=== PATIENT | male | born 1965 | race Caucasian/White ===

== ENCOUNTER 2016-07-04 07:15 | Emergency (ER) | payer OTHER ==
[~2016-07-04] VITALS: Ht 175.3 cm; Wt 95.3 kg
--- NOTE | 2016-07-04 07:15 | NUR ---
BIBA TO ER BED 3
--- NOTE | 2016-07-04 07:20 | NUR ---
51/M BIBA FROM HOME TO ED C/O SOB X 2 DAYS. HX DIABETES, RENAL DS, HTN AND R BTKA. PT HAS SHUNT TO [employer] PL[employer] LAST FRIDAY. AAOX4. SKIN WARM/DRY/PALE. UPPER LUNG SOUNDS CLR, LL SOUNDS DIMINISHED. PT DENIES PAIN/N/V/FEVER. BG 244 MG/DL. 20G IV TO RAC. BLOOD DRAWN, LAB NOTIFIED. ER MADE AWARE.
--- NOTE | 2016-07-04 07:22 | NUR ---
Patient being evaluated by physician at bedside.
[2016-07-04 07:23] VITALS: BP 162/83
--- NOTE | 2016-07-04 07:28 | NUR ---
EKG AT BEDSIDE.
[2016-07-04] MEDS ORDERED: NITROGLYCERIN 2% 1 GM PKT TP ONE (07:30)
[2016-07-04] MEDS ORDERED: ASPIRIN 81 MG TAB.CHEW PO ONE (07:30)
--- NOTE | 2016-07-04 07:30 | NUR ---
EKG SHOWS ST ELEVATED. DR. DUMONT AWARE, WANTS TO AWAIT CARDIAC MARKERS. CARDIAC STEMI PROTOCOL IN PLACE.
--- NOTE | 2016-07-04 07:38 | NUR ---
XRAY AT BEDSIDE.
[2016-07-04] MEDS ORDERED: PROMETH/CODEINE 6.25-10MG/5ML 5 ML UDC PO ONE (07:40)
[2016-07-04 07:41] LABS: BASOPHILS # (AUTO) 0.1 K/uL (0.00-0.22); BASOPHILS % (AUTO) 0.9 % (0.0-2.0); EOSINOPHILS # (AUTO) 0.3 K/uL (0-0.4); EOSINOPHILS % (AUTO) 2.5 % (0.0-4.0); HEMATOCRIT 33.7 % (36-52); HEMOGLOBIN 11.3 g/dL (12.0-18.0); LYMPHOCYTES # (AUTO) 1.7 K/uL (2.0-11.5); LYMPHOCYTES % (AUTO) 16.9 % (20.5-51.1); MEAN CORPUSCULAR HEMOGLOBIN 30 pg (27-31); MEAN CORPUSCULAR HGB CONC 34 g/dL (33-37); MEAN CORPUSCULAR VOLUME 89 fL (80-94); MONOCYTES # (AUTO) 0.6 K/uL (0.8-1.0); MONOCYTES % (AUTO) 6.2 % (1.7-9.3); NEUTROPHILS # (AUTO) 7.6 K/uL (1.8-7.7); NEUTROPHILS % (AUTO) 73.5 % (42.2-75.2); PLATELET COUNT (AUTO) 192 K/uL (140-450); RED BLOOD CELL COUNT(AUTO) 3.78 MIL/uL (4.20-6.10); RED CELL DISTRIBUTION WIDTH 12.8 % (11.6-13.7); WHITE BLOOD COUNT (AUTO) 10.3 K/uL (4.8-10.8)
[2016-07-04] MEDS ORDERED: LEVEMIR SUBQ (07:43)
[2016-07-04] MEDS ORDERED: PIOG45TA PO (07:43)
[2016-07-04] MEDS ORDERED: HYDR-1098 PO (07:43)
[2016-07-04] MEDS ORDERED: CHLO25TA33 PO (07:43)
[2016-07-04] MEDS ORDERED: LIP80 PO (07:43)
[2016-07-04] MEDS ORDERED: ALLO100T21 PO (07:43)
[2016-07-04] MEDS ORDERED: FURO-570 PO (07:43)
[2016-07-04] MEDS ORDERED: CARV6.25 PO (07:43)
[2016-07-04] MEDS ORDERED: CLON0.1T42 PO (07:43)
[2016-07-04] MEDS ORDERED: HYDR-4446 PO (07:43)
[2016-07-04] MEDS ORDERED: METO100T22 PO (07:43)
[2016-07-04] MEDS ORDERED: AMLO10TA PO (07:43)
[2016-07-04] MEDS ORDERED: NITR0.4T2 SL (07:43)
[2016-07-04] MEDS ORDERED: HUM SUBQ (07:43)
[2016-07-04] MEDS ORDERED: [UNRECOGNIZED DRUG - CODE] PO (07:43)
[2016-07-04] MEDS ORDERED: ASPI81CT89 PO (07:43)
--- NOTE | 2016-07-04 07:50 | NUR ---
TO BED SIDE.
[2016-07-04 08:04] LABS: INR 1.1 (0.8-1.2); PROTHROMBIN TIME 10.2 secs (10.8-13.4)
[2016-07-04] MEDS ORDERED: FUROSEMIDE 20 MG/2 ML VIAL IVP ONE (08:15)
[2016-07-04] MEDS ORDERED: AZITHROMYCIN 1,000 MG in DEXTROSE 5% 500 ML IV ONE (08:15)
[2016-07-04] MEDS ORDERED: cefTRIAXone 1,000 MG VIAL ONE (08:27)
--- NOTE | 2016-07-04 08:43 | NUR ---
RECEIVED CRITICAL FROM LAB. TROPONIN 12.. DR. DUMONT MADE AWARE. STEMI ACTIVATION IN PLACE.
[2016-07-04] MEDS ORDERED: AZITHROMYCIN 500 MG INJ VIAL IV ONE (08:46)
--- NOTE | 2016-07-04 08:50 | NUR ---
DR. DUMONT AT BEDSIDE SPEAKING WITH PT AND FAMILY. CONSENTS SIGNED. EMS ETA 8MINS.
[2016-07-04 09:03] LABS: ANION GAP 15.5 (8-16); CALCIUM 8.8 mg/dL (8.5-10.1); CARBON DIOXIDE 22.9 mmol/L (21-32); POTASSIUM 4.4 mmol/L (3.5-5.1)
--- NOTE | 2016-07-04 09:03 | NUR ---
EMS TRANSPORT AT BEDSIDE.
[2016-07-04 09:04] LABS: ALBUMIN 2.7 g/dL (3.4-5.0); CREATININE 6.7 mg/dL (0.6-1.3); TOTAL BILIRUBIN 0.4 mg/dL (0.0-1.0); TOTAL PROTEIN, SERUM 7.3 g/dL (6.4-8.2)
[2016-07-04 09:06] VITALS: BP 135/83
[2016-07-04 09:32] LABS: LACTIC ACID 1.2 mmol/L (0.4-2.0)
--- NOTE | 2016-07-04 09:34 | NUR ---
RECEIVED CALL FROM [facility], SPOKE KYRA STANLEY RN. PT REPORT GIVEN.
== END 2016-07-04 09:05 | disposition short-term general hospital (02) ==
LOC: MED 07:15
DX: I21.3 ST elevation (STEMI) myocardial infarction of unspecified site (principal); I50.9 Heart failure, unspecified; I11.0 Hypertensive heart disease with heart failure; E11.9 Type 2 diabetes mellitus without complications; Z79.4 Long term (current) use of insulin; Z79.899 Other long term (current) drug therapy
CPT/HCPCS: 36415; 71010; 80053; 82948; 83605; 83880; 84484; 85025; 85610; 85730; 87040; 93005; 96374; 96375; 99291; J0696; J1940; J7060; Q0092; J0456